=== PATIENT | female | born 1970 | race Caucasian/White ===

== ENCOUNTER 2017-12-02 20:55 | Emergency (ER) | payer OTHER ==
[2017-12-02] MEDS: KETOROLAC 30 MG INJ IM (21:49)
== END 2017-12-02 22:35 | disposition home or self-care (01) ==
LOC: FTE 20:55
DX: M76.62 Achilles tendinitis, left leg (principal); Z95.1 Presence of aortocoronary bypass graft
CPT/HCPCS: 73610; 73630-LT; 81025; 96372; 99284-25

== ENCOUNTER 2018-04-30 15:43 | Inpatient (IN) | payer OTHER ==
[2018-04-30] MEDS: SOD CHLORIDE 0.9% 500 ML IV (16:18)
[2018-04-30] MEDS: ASPIRIN 81 MG TAB PO (16:18)
[2018-04-30 16:23] LABS: ADD MAN DIFF? NO
[2018-04-30 16:38] LABS: ABNORMAL IP MESSAGE 1; BASOPHIL # 0.1 10^3/ul (0.0-0.1); BASOPHILS % 0.8 % (0.0-2.0); EOSINOPHILS # 0.1 10^3/ul (0.0-0.5); EOSINOPHILS % 0.7 % (0.0-7.0); HEMATOCRIT 42.5 % (37.0-47.0); LYMPHOCYTES # 2.5 10^3/ul (0.8-2.9); MEAN CORPUSCULAR HEMOGLOBIN 31.5 pg (29.0-33.0); MEAN CORPUSCULAR HGB CONC 32.9 g/dl (32.0-37.0); MEAN CORPUSCULAR VOLUME 95.5 fl (82.0-101.0); MEAN PLATELET VOLUME 12.6 fl (7.4-10.4); MONOCYTE # 0.5 10^3/ul (0.3-0.9); MONOCYTES % 7.2 % (0.0-11.0); NEUTROPHIL # 4.4 10^3/ul (1.6-7.5); NEUTROPHILS % 57.9 % (39.0-77.0); PLATELET COUNT 94 10^3/UL (140-415); RED BLOOD COUNT 4.45 10^6/ul (4.20-5.40); RED CELL DISTRIBUTION WIDTH 13.7 % (11.5-14.5)
[2018-04-30 16:38] LABS: WHITE BLOOD COUNT 7.6 10^3/ul (4.8-10.8)
[2018-04-30 16:39] LABS: POSITIVE DIFF @See below
[2018-04-30 16:48] LABS: ALANINE AMINOTRANSFERASE 37 IU/L (13-69); ALBUMIN 4.3 g/dl (3.3-4.9); ALBUMIN/GLOBULIN RATIO 1.34; ALKALINE PHOSPHATASE 121 IU/L (42-121); ANION GAP 12 (8-16); ASPARTATE AMINO TRANSFERASE 36 IU/L (15-46); BILIRUBIN,INDIRECT 0.9 mg/dl (0-1.1); BILIRUBIN,TOTAL 0.9 mg/dl (0.2-1.3); BLOOD UREA NITROGEN 13 mg/dl (7-20); CALCIUM 9.2 mg/dl (8.4-10.2); CARBON DIOXIDE 27 mmol/L (21-31); CHLORIDE 104 mmol/L (97-110); CREATININE 0.61 mg/dl (0.44-1.00); GLUCOSE 91 mg/dl (70-220); INR 1.29; LIPASE 38 U/L (23-300); POTASSIUM 4.2 mmol/L (3.5-5.1); PROTIME 16.3 Sec (11.9-14.9); PT RATIO 1.3; SODIUM 139 mmol/L (135-144); TOTAL PROTEIN 7.5 g/dl (6.1-8.1)
[2018-04-30 16:49] LABS: PARTIAL THROMBOPLASTIN TIME 31.9 Sec (25.0-35.0)
[2018-04-30 17:00] LABS: B-TYPE NATRIURETIC PEPTIDE 3100 PG/ML (0-125); TROPONIN-I < 0.012 ng/ml (0.000-0.120)
[2018-04-30 17:04] LABS: ADD UMIC YES; UR ASCORBIC ACID 40 mg/dL (NEGATIVE); UR BILIRUBIN (Dip) NEGATIVE (NEGATIVE); UR BLOOD (Dip) NEGATIVE (NEGATIVE); UR CLARITY CLEAR (CLEAR); UR COLOR YELLOW (YELLOW); UR GLUCOSE (Dip) NEGATIVE (NEGATIVE); UR KETONES (Dip) NEGATIVE (NEGATIVE); UR LEUKOCYTE ESTERASE (Dip) NEGATIVE Leu/ul (NEGATIVE); UR MUCUS FEW /HPF (NONE SEEN); UR NITRITE (Dip) NEGATIVE (NEGATIVE); UR RBC 1 /HPF (0-5); UR SPECIFIC GRAVITY (Dip) 1.016 (1.003-1.030); UR TOTAL PROTEIN (Dip) 1+ mg/dl (NEGATIVE); UR UROBILINOGEN (Dip) 1+ mg/dL (NEGATIVE); UR WBC 1 /HPF (0-5)
[2018-04-30] MEDS: DIGOXIN 500 MCG INJ IV (17:16)
[2018-04-30] MEDS: FUROSEMIDE 40 MG INJ IV (17:20)
[2018-04-30] MEDS ORDERED: HYDROCODONE/APAP (5/325) TAB PO (18:30)
[2018-04-30] MEDS ORDERED: NACL 0.9% 3 ML SYG IV (18:30)
[2018-05-01 05:17] LABS: ADD MAN DIFF? NO
[2018-05-01 05:29] LABS: ABNORMAL IP MESSAGE 1; BASOPHIL # 0.1 10^3/ul (0.0-0.1); BASOPHILS % 1.1 % (0.0-2.0); EOSINOPHILS # 0.1 10^3/ul (0.0-0.5); HEMATOCRIT 42.1 % (37.0-47.0); HEMOGLOBIN 13.6 g/dl (12.0-16.0); LYMPHOCYTES # 2.4 10^3/ul (0.8-2.9); MEAN CORPUSCULAR HEMOGLOBIN 31.4 pg (29.0-33.0); MEAN CORPUSCULAR HGB CONC 32.3 g/dl (32.0-37.0); MEAN CORPUSCULAR VOLUME 97.2 fl (82.0-101.0); MEAN PLATELET VOLUME 13.3 fl (7.4-10.4); MONOCYTE # 0.4 10^3/ul (0.3-0.9); MONOCYTES % 7.6 % (0.0-11.0); NEUTROPHIL # 2.5 10^3/ul (1.6-7.5); NEUTROPHILS % 45.1 % (39.0-77.0); PLATELET COUNT 91 10^3/UL (140-415); RED BLOOD COUNT 4.33 10^6/ul (4.20-5.40); RED CELL DISTRIBUTION WIDTH 13.8 % (11.5-14.5)
[2018-05-01 05:29] LABS: WHITE BLOOD COUNT 5.4 10^3/ul (4.8-10.8)
[2018-05-01 05:43] LABS: HEMOGLOBIN A1C 6.5 % (0-5.9)
[2018-05-01 05:44] LABS: ALANINE AMINOTRANSFERASE 34 IU/L (13-69); ALBUMIN 3.7 g/dl (3.3-4.9); ALBUMIN/GLOBULIN RATIO 1.12; ALKALINE PHOSPHATASE 104 IU/L (42-121); ANION GAP 13 (8-16); ASPARTATE AMINO TRANSFERASE 32 IU/L (15-46); BILIRUBIN,INDIRECT 0.9 mg/dl (0-1.1); BILIRUBIN,TOTAL 0.9 mg/dl (0.2-1.3); BLOOD UREA NITROGEN 16 mg/dl (7-20); CALCIUM 8.9 mg/dl (8.4-10.2); CARBON DIOXIDE 31 mmol/L (21-31); CHLORIDE 103 mmol/L (97-110); GLUCOSE 100 mg/dl (70-220); MAGNESIUM 1.8 mg/dl (1.7-2.5); POTASSIUM 3.5 mmol/L (3.5-5.1); SODIUM 143 mmol/L (135-144)
[2018-05-01 06:05] LABS: POSITIVE DIFF @See below
[2018-05-01] MEDS: FUROSEMIDE 40 MG INJ IV ×2 (06:21→17:19)
[2018-05-01] MEDS: ENOXAPARIN 60 MG/0.6 ML SYG SC (20:44)
[2018-05-01] MEDS ORDERED: ENOXAPARIN 60 MG/0.6 ML SYG SC (21:00)
[2018-05-02 05:51] LABS: ANION GAP 14 (8-16); BLOOD UREA NITROGEN 24 mg/dl (7-20); CALCIUM 9.4 mg/dl (8.4-10.2); CARBON DIOXIDE 30 mmol/L (21-31); CHLORIDE 102 mmol/L (97-110); CREATININE 0.73 mg/dl (0.44-1.00); GLUCOSE 125 mg/dl (70-220); MAGNESIUM 1.9 mg/dl (1.7-2.5); POTASSIUM 3.7 mmol/L (3.5-5.1); SODIUM 142 mmol/L (135-144)
[2018-05-02] MEDS: FUROSEMIDE 40 MG INJ IV (06:32)
[2018-05-02] MEDS: ENOXAPARIN 60 MG/0.6 ML SYG SC ×2 (08:25→20:54)
[2018-05-02] MEDS ORDERED: METOPROLOL 5 MG INJ IV (14:30)
[2018-05-02] MEDS: DILTIAZEM 30 MG TAB PO ×2 (14:30→22:00)
[2018-05-02] MEDS: DIGOXIN 500 MCG INJ IV ×2 (14:34→20:27)
[2018-05-03] MEDS: DILTIAZEM 30 MG TAB PO ×2 (06:00→15:30)
[2018-05-03] MEDS: FUROSEMIDE 40 MG INJ IV (10:54)
[2018-05-03] MEDS: ENOXAPARIN 60 MG/0.6 ML SYG SC (11:10)
[2018-05-03] MEDS ORDERED: DIGOXIN 500 MCG INJ IV ×2 (11:30)
[2018-05-03] MEDS ORDERED: DIGOXIN 0.125 MG TAB PO (13:00)
[2018-05-03] MEDS: DIGOXIN 500 MCG INJ IV (14:38)
[2018-05-04] MEDS ORDERED: DIGOXIN 0.125 MG TAB PO (13:00)
== END 2018-05-03 19:10 | disposition home or self-care (01) | DRG 308 ==
LOC: E/R 15:43 → 6WM 17:46
DX: I48.91 Unspecified atrial fibrillation (principal); I50.41 Acute combined systolic (congestive) and diastolic (congestive) heart failure; D68.69 Other thrombophilia; I11.0 Hypertensive heart disease with heart failure; Z95.2 Presence of prosthetic heart valve; I45.10 Unspecified right bundle-branch block
CPT/HCPCS: 36415; 71045; 80048; 80053; 81001; 83036; 83690; 83735; 83880; 84443; 84484; 85025; 85610; 85730; 93005; 93306; 96374; 96375; 99291-25